=== PATIENT | female | born 1955 | race Caucasian/White ===

== ENCOUNTER 2016-09-09 19:43 | Emergency (ER) | payer MEDICAID ==
[~2016-09-09] VITALS: Ht 167.6 cm; Wt 66.2 kg
[2016-09-09 19:43] VITALS: BP_SYST 120
[2016-09-09] MEDS ORDERED: DIPHENHYDRAMINE INJ 50 MG/ML VIAL IM ONE (20:15)
[2016-09-09] MEDS ORDERED: MORPHINE SULFATE 10 MG/ML VIAL IM ONE (20:15)
[2016-09-09 20:44] VITALS: BP_SYST 116
== END 2016-09-09 20:44 | disposition home or self-care (01) ==
LOC: SED 19:43
DX: G89.29 Other chronic pain (principal); M54.6 Pain in thoracic spine
CPT/HCPCS: 96372; 99284; J1200; J2270

== ENCOUNTER 2016-09-11 16:02 | Emergency (ER) | payer MEDICAID ==
[~2016-09-11] VITALS: Ht 167.6 cm; Wt 66.2 kg
[2016-09-11 16:05] VITALS: BP_SYST 134
[2016-09-11] MEDS ORDERED: KETOROLAC TROMETHAMINE 60 MG/2 ML VIAL IM ONE (16:30)
[2016-09-11] MEDS ORDERED: MORPHINE SULFATE 10 MG/ML VIAL IM ONE (16:45)
[2016-09-11] MEDS ORDERED: ONDANSETRON 4 MG ODT TAB PO ONE (16:45)
[2016-09-11 17:03] VITALS: BP_SYST 134
== END 2016-09-11 17:03 | disposition home or self-care (01) ==
LOC: SED 16:02
DX: G89.29 Other chronic pain (principal); M54.9 Dorsalgia, unspecified; F32.9 Major depressive disorder, single episode, unspecified; Z90.710 Acquired absence of both cervix and uterus
CPT/HCPCS: 96372; 99284; J1885; J2270; Q0162

== ENCOUNTER 2016-09-15 13:45 | Emergency (ER) | payer MEDICAID ==
[~2016-09-15] VITALS: Ht 167.6 cm; Wt 66.2 kg
[2016-09-15 14:05] VITALS: BP_SYST 109
[2016-09-15] MEDS ORDERED: MORPHINE SULFATE 10 MG/ML VIAL IM ONE (14:30)
[2016-09-15] MEDS ORDERED: ONDANSETRON 4 MG ODT TAB PO ONE (14:30)
[2016-09-15 15:00] VITALS: BP_SYST 110
== END 2016-09-15 15:00 | disposition home or self-care (01) ==
LOC: SED 13:45
DX: G89.29 Other chronic pain (principal); M54.6 Pain in thoracic spine
CPT/HCPCS: 96372; 99283; J2270; Q0162

== ENCOUNTER 2016-11-05 11:23 | Emergency (ER) | payer MEDICAID ==
[~2016-11-05] VITALS: Ht 167.6 cm; Wt 65.3 kg
[2016-11-05 11:23] VITALS: BP_SYST 145
== END 2016-11-05 12:20 | disposition left against medical advice (07) ==
LOC: SED 11:23
DX: M25.561 Pain in right knee (principal); Z53.21 Procedure and treatment not carried out due to patient leaving prior to being seen by health care provider
CPT/HCPCS: 99281; J7030

== ENCOUNTER 2016-11-05 14:49 | Emergency (ER) | payer MEDICAID ==
[~2016-11-05] VITALS: Ht 167.6 cm; Wt 65.3 kg
[2016-11-05 15:27] VITALS: BP_SYST 128
== END 2016-11-05 15:35 | disposition home or self-care (01) ==
LOC: SED 14:49
DX: G89.29 Other chronic pain (principal); M25.561 Pain in right knee; M19.90 Unspecified osteoarthritis, unspecified site; F32.9 Major depressive disorder, single episode, unspecified
CPT/HCPCS: 99283

== ENCOUNTER 2016-12-09 03:02 | Emergency (ER) | payer MEDICAID ==
[~2016-12-09] VITALS: Ht 167.6 cm; Wt 63.5 kg
[2016-12-09 03:21] VITALS: BP_SYST 120
[2016-12-09] MEDS ORDERED: KETOROLAC TROMETHAMINE 60 MG/2 ML VIAL IM ONE (04:00)
[2016-12-09 04:45] VITALS: BP_SYST 124
== END 2016-12-09 04:45 | disposition home or self-care (01) ==
LOC: SED 03:02
DX: M54.9 Dorsalgia, unspecified (principal); G89.29 Other chronic pain; F32.9 Major depressive disorder, single episode, unspecified
CPT/HCPCS: 96372; 99283; J1885

== ENCOUNTER 2017-03-03 06:08 | Inpatient (IN) | payer MEDICAID ==
[~2017-03-03] VITALS: Ht 175.3 cm; Wt 63.5 kg
[2017-03-03 06:10] VITALS: BP_SYST 122
[2017-03-03] MEDS ORDERED: LORazepam 2 MG/ML VIAL (FOR ER USE) ONE (06:27)
[2017-03-03] MEDS ORDERED: NACL 0.9% 1,000 ML IV ONE (06:30)
[2017-03-03] MEDS ORDERED: LORazepam 2 MG/ML VIAL (FOR ER USE) IVP ONE ×2 (06:30→08:45)
[2017-03-03] MEDS ORDERED: HALOPERIDOL LACTATE 5 MG/ML VIAL IVP ONE ×2 (07:00→08:45)
[2017-03-03] MEDS ORDERED: HALOPERIDOL LACTATE 5 MG/ML VIAL ONE (07:01)
[2017-03-03] MEDS ORDERED: HALOPERIDOL LACTATE 5 MG/ML VIAL IM ONE (07:15)
[2017-03-03 07:16] LABS: BILIRUBIN,URINE NEGATIVE (NEGATIVE); BLOOD, URINE NEGATIVE (NEGATIVE); CLARITY/URINE CLEAR (CLEAR); COLOR,URINE YELLOW (YELLOW); GLUCOSE,URINE NEGATIVE (NEGATIVE); KETONES,URINE TRACE (NEGATIVE); LEUKOCYTE ESTERASE ,URINE NEGATIVE (NEGATIVE); NITRITE, URINE NEGATIVE (NEGATIVE); PH,URINE 5.5 (5.0-8.0); PROTEIN URINE NEGATIVE (NEGATIVE); UROBILINOGEN,URINE 0.2 (0.2-1.0)
[2017-03-03 07:16] LABS: BASOPHILS # (AUTO) 0.1 K/uL (0.0-0.2); BASOPHILS % (AUTO) 1.1 % (0.0-2.0); EOSINOPHILS # (AUTO) 0.2 K/uL (0.0-0.4); EOSINOPHILS % (AUTO) 1.4 % (0.0-4.0); HEMATOCRIT 41.8 % (36-48); HEMOGLOBIN 13.9 g/dL (12.0-16.0); LYMPHOCYTES # (AUTO) 2.2 K/uL (1.0-5.5); LYMPHOCYTES % (AUTO) 17.8 % (20.5-51.5); MEAN CORPUSCULAR HEMOGLOBIN 30 pg (27-31); MEAN CORPUSCULAR HGB CONC 33 % (32-36); MEAN CORPUSCULAR VOLUME 91 fL (79.0-98.0); MONOCYTES # (AUTO) 1.2 K/uL (0.0-1.0); MONOCYTES % (AUTO) 9.7 % (1.7-9.3); NEUTROPHILS # (AUTO) 8.5 K/uL (1.8-7.7); PLATELET COUNT (AUTO) 418 K/uL (130-430); RED BLOOD CELL COUNT(AUTO) 4.59 MIL/uL (4.2-6.2); RED CELL DISTRIBUTION WIDTH 13.5 % (9.0-15.0); WHITE BLOOD COUNT (AUTO) 12.2 K/uL (4.8-10.8)
[2017-03-03 07:27] LABS: ANION GAP 14 (5-15); CALCIUM 9.1 mg/dL (8.4-11.0); CHLORIDE 105 mmol/L (98-107); CREATININE 1.18 mg/dL (0.55-1.30); GLUCOSE 114 mg/dL (70-99); POTASSIUM 4.3 mmol/L (3.5-5.1); SODIUM SERUM 143 mmol/L (136-145); UREA NITROGEN, BLOOD 25 mg/dL (8-21)
[2017-03-03 07:28] LABS: INR 1.1 (0.8-1.2); PROTHROMBIN TIME 10.8 SECS (9.5-12.5)
[2017-03-03 07:34] LABS: ALANINE AMINOTRANSFERASE 17 U/L (12-78); ASPARTATE AMINOTRANSFERASE 17 U/L (10-37); TOTAL BILIRUBIN 0.3 mg/dL (0.0-1.0)
[2017-03-03 07:39] LABS: BARBITURATE, URINE NEGATIVE (NEG <=200); BENZODIAZEPINE, URINE POSITIVE (NEG <=150); CANNABINOID, URINE NEGATIVE (NEG <=50); COCAINE, URINE NEGATIVE (NEG <=150); METHAMPHETAMINES SCREEN,URINE NEGATIVE (NEG <=500); OPIATE, URINE POSITIVE (NEG <=100); PHENCYCLIDINE SCREEN,URINE NEGATIVE (NEG <=25); UR TRICYCLIC ANTIDEPRESSANTS NEGATIVE (NEG <=300); URINE AMPHETAMINE NEGATIVE (NEG <=500); URINE METHADONE NEGATIVE (NEG <=200); URINE OXYCODONE SCREEN NEGATIVE (NEG <=100); URINE PROPOXYPHENE SCREEN NEGATIVE (NEG <=300)
[2017-03-03] MEDS ORDERED: DIPHENHYDRAMINE INJ 50 MG/ML VIAL IVP ONE ×2 (07:45→10:30)
[2017-03-03 07:48] LABS: GFR AFRICAN AMERICAN 60 mL/min (>90)
[2017-03-03 08:10] LABS: ACETAMINOPHEN < 1 ug/mL (1-30)
[2017-03-03 12:00] VITALS: BP_SYST 91
[2017-03-03 12:01] VITALS: BP_SYST 91
[2017-03-03] MEDS ORDERED: LORazepam 2 MG/ML VIAL IVP PRN (12:30)
[2017-03-03] MEDS ORDERED: HALOPERIDOL LACTATE 5 MG/ML VIAL IM PRN (12:30)
[2017-03-03] MEDS: D5LR 1,000 ML IV SCH ×2 (12:38→22:30)
[2017-03-03 16:27] VITALS: BP_SYST 97
[2017-03-03] MEDS ORDERED: HYDROcodone/ACETAMIN 5-325 MG TAB (NORCO/ VICODIN) PO PRN (18:30)
[2017-03-03] MEDS: HYDROcodone/ACETAMIN 5-325 MG TAB (NORCO/ VICODIN) PO PRN (18:36)
[2017-03-03 19:00] VITALS: BP_SYST 122
[2017-03-03 20:00] VITALS: BP_SYST 122
[2017-03-04 01:16] VITALS: BP_SYST 100
[2017-03-04] MEDS: HYDROcodone/ACETAMIN 5-325 MG TAB (NORCO/ VICODIN) PO PRN (06:43)
[2017-03-04 07:40] LABS: BASOPHILS # (AUTO) 0.1 K/uL (0.0-0.2); BASOPHILS % (AUTO) 0.8 % (0.0-2.0); EOSINOPHILS # (AUTO) 0.2 K/uL (0.0-0.4); EOSINOPHILS % (AUTO) 2.5 % (0.0-4.0); HEMATOCRIT 39.7 % (36-48); HEMOGLOBIN 13.3 g/dL (12.0-16.0); LYMPHOCYTES # (AUTO) 1.9 K/uL (1.0-5.5); LYMPHOCYTES % (AUTO) 24.8 % (20.5-51.5); MEAN CORPUSCULAR HEMOGLOBIN 31 pg (27-31); MEAN CORPUSCULAR HGB CONC 34 % (32-36); MEAN CORPUSCULAR VOLUME 92 fL (79.0-98.0); MONOCYTES # (AUTO) 0.7 K/uL (0.0-1.0); MONOCYTES % (AUTO) 8.9 % (1.7-9.3); NEUTROPHILS # (AUTO) 4.9 K/uL (1.8-7.7); PLATELET COUNT (AUTO) 357 K/uL (130-430); RED BLOOD CELL COUNT(AUTO) 4.31 MIL/uL (4.2-6.2); RED CELL DISTRIBUTION WIDTH 13.7 % (9.0-15.0); WHITE BLOOD COUNT (AUTO) 7.8 K/uL (4.8-10.8)
[2017-03-04 08:13] LABS: CALCIUM 8.8 mg/dL (8.4-11.0); CREATININE 0.58 mg/dL (0.55-1.30); POTASSIUM 3.8 mmol/L (3.5-5.1)
[2017-03-04 08:33] LABS: ALBUMIN 3.4 g/dL (3.4-4.8); THYROID STIMULATING HORMONE 0.06 uIu/mL (0.36-3.74); TOTAL BILIRUBIN 0.7 mg/dL (0.0-1.0)
== END 2017-03-04 08:05 | disposition left against medical advice (07) | DRG 751 ==
LOC: SED 06:08 → SMU 11:24 → STU 11:50
PROVIDERS: ADMIT Internal Medicine; ATTEND Internal Medicine
DX: F23 Brief psychotic disorder (principal); Z78.1 Physical restraint status; E03.9 Hypothyroidism, unspecified; F19.10 Other psychoactive substance abuse, uncomplicated; Z53.21 Procedure and treatment not carried out due to patient leaving prior to being seen by health care provider; G89.29 Other chronic pain; M54.5 Low back pain
CPT/HCPCS: 36415; 70450-TC; 80053; 80307; 81003; 84439; 84443-TC; 85025; 85610-TC; 85730-TC; 93005; 96361; 96372; 96374; 96375; 96376; 99285; G0480; G0481; J1200; J1630; J2060; J7030

== ENCOUNTER 2017-03-05 22:49 | Emergency (ER) | payer MEDICAID ==
[~2017-03-05] VITALS: Ht 167.6 cm; Wt 64.9 kg
[2017-03-05 23:06] VITALS: BP_SYST 116
[2017-03-05] MEDS ORDERED: DIAZEPAM 10 MG/2 ML DISP.SYRIN IM ONE (23:30)
[2017-03-05] MEDS ORDERED: KETOROLAC TROMETHAMINE 60 MG/2 ML VIAL IM ONE (23:30)
[2017-03-06 00:15] VITALS: BP_SYST 118
== END 2017-03-06 00:15 | disposition home or self-care (01) ==
LOC: SED 22:49
DX: G89.29 Other chronic pain (principal); M54.5 Low back pain; F32.9 Major depressive disorder, single episode, unspecified
CPT/HCPCS: 96372; 99284; J1885; J3360

== ENCOUNTER 2017-04-26 08:37 | Emergency (ER) | payer MEDICAID ==
[~2017-04-26] VITALS: Ht 167.6 cm; Wt 65.8 kg
[2017-04-26 08:43] VITALS: BP_SYST 152
--- NOTE | 2017-04-26 08:48 | NUR ---
Patient to ER bed 8 to gown for evaluation. Side rails up. Report given to Minnie DEAL.
[2017-04-26] MEDS ORDERED: NACL 0.9% 1,000 ML IV ONE (08:50)
[2017-04-26] MEDS ORDERED: LORazepam 2 MG/ML VIAL IVP ONE (09:00)
--- NOTE | 2017-04-26 09:00 | NUR ---
ER Dr. Cramer at bedside examining patient.
--- NOTE | 2017-04-26 09:01 | NUR ---
Pt AAOx4, able to verbalize needs. Pt states she "feels anxious with pressure in the chest." Pt states no radiating pain and states onset is "on and off since yesterday." Pt c/o pain 4/10 in chest. Pt also states having "anxiety d/t recently being homeless." Pt states no intent to harm self. No other complaints or injuries per pt or noted.
[2017-04-26] MEDS ORDERED: LORazepam 2 MG/ML VIAL (FOR ER USE) ONE (09:07)
[2017-04-26 09:28] LABS: BASOPHILS % (AUTO) 0.6 % (0.0-2.0); EOSINOPHILS # (AUTO) 0.2 K/uL (0.0-0.4); EOSINOPHILS % (AUTO) 2.8 % (0.0-4.0); HEMATOCRIT 43.3 % (36-48); HEMOGLOBIN 14.6 g/dL (12.0-16.0); LYMPHOCYTES # (AUTO) 1.9 K/uL (1.0-5.5); MEAN CORPUSCULAR HEMOGLOBIN 31 pg (27-31); MEAN CORPUSCULAR HGB CONC 34 % (32-36); MEAN CORPUSCULAR VOLUME 91 fL (79.0-98.0); MONOCYTES # (AUTO) 0.6 K/uL (0.0-1.0); MONOCYTES % (AUTO) 7.8 % (1.7-9.3); NEUTROPHILS # (AUTO) 4.5 K/uL (1.8-7.7); NEUTROPHILS % (AUTO) 61.8 % (40.0-70.0); PLATELET COUNT (AUTO) 471 K/uL (130-430); RED BLOOD CELL COUNT(AUTO) 4.76 MIL/uL (4.2-6.2); RED CELL DISTRIBUTION WIDTH 12.9 % (9.0-15.0); WHITE BLOOD COUNT (AUTO) 7.2 K/uL (4.8-10.8)
[2017-04-26 09:36] LABS: PROTHROMBIN TIME 9.9 SECS (9.5-12.5)
[2017-04-26 09:48] LABS: BILIRUBIN,URINE NEGATIVE (NEGATIVE); BLOOD, URINE NEGATIVE (NEGATIVE); CLARITY/URINE CLEAR (CLEAR); COLOR,URINE YELLOW (YELLOW); GLUCOSE,URINE NEGATIVE (NEGATIVE); KETONES,URINE NEGATIVE (NEGATIVE); LEUKOCYTE ESTERASE ,URINE NEGATIVE (NEGATIVE); NITRITE, URINE NEGATIVE (NEGATIVE); PROTEIN URINE NEGATIVE (NEGATIVE); UROBILINOGEN,URINE 0.2 (0.2-1.0)
[2017-04-26 09:49] LABS: CALCIUM 9.5 mg/dL (8.4-11.0); CREATININE 0.64 mg/dL (0.55-1.30); POTASSIUM 4.1 mmol/L (3.5-5.1)
[2017-04-26 10:03] LABS: BARBITURATE, URINE NEGATIVE (NEG <=200); BENZODIAZEPINE, URINE POSITIVE (NEG <=150); CANNABINOID, URINE NEGATIVE (NEG <=50); COCAINE, URINE NEGATIVE (NEG <=150); METHAMPHETAMINES SCREEN,URINE NEGATIVE (NEG <=500); OPIATE, URINE NEGATIVE (NEG <=100); PHENCYCLIDINE SCREEN,URINE NEGATIVE (NEG <=25); UR TRICYCLIC ANTIDEPRESSANTS POSITIVE (NEG <=300); URINE AMPHETAMINE NEGATIVE (NEG <=500); URINE METHADONE NEGATIVE (NEG <=200); URINE OXYCODONE SCREEN NEGATIVE (NEG <=100); URINE PROPOXYPHENE SCREEN NEGATIVE (NEG <=300)
[2017-04-26 10:04] LABS: ALBUMIN 3.6 g/dL (3.4-4.8); THYROID STIMULATING HORMONE 0.04 uIu/mL (0.34-4.82); TOTAL BILIRUBIN 0.2 mg/dL (0.0-1.0)
[2017-04-26 10:55] VITALS: BP_SYST 136
--- NOTE | 2017-04-26 10:55 | NUR ---
Patient given written and verbal discharge instructions and verbalizes understanding. ER MD discussed with patient the results and treatment provided. Patient in stable condition. ID arm band removed. IV catheter removed intact and dressing applied, no active bleeding. Rx of Ativan given. Patient educated on pain management and to follow up with PMD. Pain Scale 0. Opportunity for questions provided and answered.
== END 2017-04-26 10:55 | disposition home or self-care (01) ==
LOC: SED 08:37
DX: F41.8 Other specified anxiety disorders (principal); F17.200 Nicotine dependence, unspecified, uncomplicated; Z90.49 Acquired absence of other specified parts of digestive tract; Z90.710 Acquired absence of both cervix and uterus
CPT/HCPCS: 36415; 80053; 80307; 81003; 82150; 83690; 84443; 84484; 85025; 85610; 85730; 93005; 96361; 96374; 99285; J2060; J7030

== ENCOUNTER 2017-12-01 19:55 | Emergency (ER) | payer MEDICAID ==
[~2017-12-01] VITALS: Ht 167.6 cm; Wt 68.0 kg
[2017-12-01 20:04] VITALS: BP_SYST 109
[2017-12-01] MEDS ORDERED: KETOROLAC TROMETHAMINE 30 MG VIAL IM ONE (20:45)
[2017-12-01 21:16] VITALS: BP_SYST 110
== END 2017-12-01 21:16 | disposition home or self-care (01) ==
LOC: SED 19:55
DX: M17.11 Unilateral primary osteoarthritis, right knee (principal); F32.9 Major depressive disorder, single episode, unspecified; Z90.49 Acquired absence of other specified parts of digestive tract; Z90.710 Acquired absence of both cervix and uterus
CPT/HCPCS: 96372; 99283; J1885